=== PATIENT | male | born 1975 | race Caucasian/White ===

== ENCOUNTER 2019-03-23 09:48 | Inpatient (IN) | payer BC, MEDICAID ==
[~2019-03-23] VITALS: Ht 180.3 cm; Wt 112.9 kg
[2019-03-23 11:03] LABS: BASOPHILS # (AUTO) 0.1 K/uL (0.0-8.0); BASOPHILS % (AUTO) 0.9 % (0.0-2.0); EOSINOPHILS # (AUTO) 0.3 K/uL (0.0-0.7); EOSINOPHILS % (AUTO) 3.5 % (0.0-7.0); HEMATOCRIT 43.5 % (36.7-47.1); HEMOGLOBIN 14.5 g/dL (12.5-16.3); LYMPHOCYTES % (AUTO) 20.8 % (20.5-51.5); MEAN CORPUSCULAR HEMOGLOBIN 29.6 uug (23.8-33.4); MEAN CORPUSCULAR HGB CONC 33 g/dL (32.5-36.3); MEAN CORPUSCULAR VOLUME 88.7 fL (73.0-96.2); MONOCYTES # (AUTO) 0.7 K/uL (2.0-10.0); MONOCYTES % (AUTO) 7.2 % (0.0-11.0); NEUTROPHILS # (AUTO) 6.6 K/uL (1.8-8.9); NEUTROPHILS % (AUTO) 67.6 % (38.5-71.5); RED BLOOD CELL COUNT(AUTO) 4.91 MIL/uL (4.06-5.63)
[2019-03-23 11:12] LABS: CREATININE 0.9 mg/dL (0.6-1.3); POTASSIUM 4.1 mmol/L (3.5-5.1)
[2019-03-23] MEDS ORDERED: HYDROCODONE/APAP 5-325MG TABLET PO PRN (11:15)
[2019-03-23] MEDS ORDERED: Z GUARD REMEDY PASTE 57 GM TUBE TOP PRN (11:15)
[2019-03-23] MEDS ORDERED: MAGNESIUM HYDROXIDE 30 ML LIQUID UDC PO PRN (11:15)
[2019-03-23] MEDS ORDERED: ONDANSETRON 4 MG/2 ML VIAL IV PRN (11:15)
[2019-03-23] MEDS ORDERED: ACETAMINOPHEN 325 MG TABLET PO PRN (11:15)
[2019-03-23] MEDS ORDERED: ZOLPIDEM 5 MG TABLET PO PRN (11:15)
[2019-03-23 11:18] LABS: BILIRUBIN,DIRECT 0.1 mg/dL (0.0-0.2); BILIRUBIN,TOTAL 0.6 mg/dL (0.2-1.0); TOTAL PROTEIN, SERUM 7.5 g/dL (6.4-8.2)
[2019-03-23 12:00] VITALS: BP 126/81
[2019-03-23 12:01] LABS: PLATELET COUNT (AUTO) 194 K/uL (152-348)
[2019-03-23 15:20] VITALS: BP 122/73
[2019-03-23] MEDS ORDERED: SWABABLE VALVE TRANSFER SET EA MC ONE (17:17)
[2019-03-23] MEDS ORDERED: IV NORMAL SALINE 250 ML IV ONE (17:18)
[2019-03-23] MEDS ORDERED: IOHEXOL 350 100 ML INFUS..BTL ONE (17:18)
[2019-03-23 20:00] VITALS: BP 121/75
[2019-03-23] MEDS ORDERED: ATORVASTATIN 40 MG TABLET PO SCH (21:00)
[2019-03-23] MEDS: LORAZEPAM 1 MG TABLET PO PRN (21:37)
[2019-03-24 00:05] VITALS: BP 148/80
[2019-03-24 04:02] VITALS: BP 113/71
[2019-03-24] MEDS: LORAZEPAM 1 MG TABLET PO PRN (06:05)
[2019-03-24] MEDS ORDERED: NICOTINE 7 MG/24HR PATCH TD SCH (09:00)
[2019-03-24] MEDS ORDERED: ASPIRIN 81 MG TAB.CHEW PO SCH (09:00)
[2019-03-24 11:20] VITALS: BP 127/75
== END 2019-03-24 11:52 | disposition home or self-care (01) | DRG 58 ==
LOC: ER 09:48 → TELE3 11:16
DX: R47.02 Dysphasia (principal); R47.01 Aphasia; H53.2 Diplopia; E66.9 Obesity, unspecified; F11.10 Opioid abuse, uncomplicated; R53.1 Weakness; Z68.34 Body mass index [BMI] 34.0-34.9, adult; G89.21 Chronic pain due to trauma; M54.2 Cervicalgia; M54.9 Dorsalgia, unspecified; V89.2XXS Person injured in unspecified motor-vehicle accident, traffic, sequela; J34.1 Cyst and mucocele of nose and nasal sinus
CPT/HCPCS: 36415; 70030-TC; 70450; 70496; 70553; 71045; 83605; 85025; 85730; 86850; 86900; 86901; 87040; 93005; 93307; A4663; A9150; G0378; J7050; Q9967